=== PATIENT | female | born 1985 | race African-American/Black ===

== ENCOUNTER 2020-04-29 13:57 | Emergency (ER) | payer SELFPAY ==
[~2020-04-29] VITALS: Ht 170.2 cm; Wt 90.7 kg
[2020-04-29 13:59] VITALS: BP 118/76
[2020-04-29] MEDS ORDERED: KETOROLAC 60 MG/2 ML VIAL IM ONE (14:30)
--- NOTE | 2020-04-29 14:37 | NUR ---
TORAD[facility] IM ADMINISTERED
--- NOTE | 2020-04-29 15:00 | NUR ---
PT REPORTS NO RELIEF FROM [facility]
--- NOTE | 2020-04-29 15:00 | NUR ---
C/O SEVERE LOWER AB CRAMPING 10 AND LOWER BACK PAIN X2 DAYS S/P TAKING A PLAN B PILL ON MONDAY. DENIES ANY VAGINAL BLEEDING. PT HAS BEEN TAKING NAPROXEN AND IBUPROFEN WITHOUT RELIEF. PT ALERT AND AWAKE. AMBULATORY. PMH: FIBROIDS
[2020-04-29] MEDS ORDERED: HYDROcodone/APAP 5/325 MG 1 TAB TAB PO ONE (15:10)
--- NOTE | 2020-04-29 15:17 | NUR ---
NORCO PO ADMINISTERED
--- NOTE | 2020-04-29 16:07 | NUR ---
NADR, PAIN 5/10 POST NORCO
--- NOTE | 2020-04-29 16:14 | NUR ---
Patient discharged with v/s stable. Written and verbal after care instructions given and explained. Patient alert, oriented and verbalized understanding of instructions. Ambulatory with steady gait. All questions addressed prior to discharge. ID band removed. Patient advised to follow up with PMD. Rx of ZOFRAN AND NORCO given. Patient educated on indication of medication including possible reaction and side effects. Opportunity to ask questions provided and answered.
[2020-04-29 16:15] VITALS: BP 118/76
== END 2020-04-29 16:14 | disposition home or self-care (01) ==
LOC: MED 13:57
DX: N94.6 Dysmenorrhea, unspecified (principal); R10.9 Unspecified abdominal pain; D21.9 Benign neoplasm of connective and other soft tissue, unspecified; F17.210 Nicotine dependence, cigarettes, uncomplicated; Z88.6 Allergy status to analgesic agent; Z98.890 Other specified postprocedural states
CPT/HCPCS: 81002; 81025; 96372; 99283; J1885